=== PATIENT | female | born 1955 | race Caucasian/White ===

== ENCOUNTER 2018-01-07 15:27 | Observation (INO) | payer OTHER ==
[~2018-01-07] VITALS: Ht 175.3 cm; Wt 167.3 kg
[~2018-01-07 15:27] MED LIST: ACULAR 0.5100 DROP/5 BOTH EYES; ASPIR 8181 M1 PO; AVENTYL,PAMELOR10 MG PO; CLARINEX5 MG PO; CLARITIN10 M3 PO; CLEOCIN300 MG PO; COLACE100 MG PO; CRESTOR10 MG PO; Citracal W/Vitamin D PO; Colace PO; DIFLUCAN 440 MG/1 ML PO; DIFLUCAN50 MG PO; Diflucan PO; ENDOCET 5-3251 EACH PO; FISH OIL 1,2001 EAC4 PO; FISH OIL300 MG PO; FLAX OIL1000 MG PO; FLAXSEED OIL1000 M4 PO; Flomax PO; GLIPIZIDE XL10 M1 PO; GLYBURIDE5 MG PO; JANUMET 50/11 TABLET PO; LASIX20 MG PO; LORTAB 5-500 T1 EACH PO; METANX1 TABLET PO; MICARDIS80 MG PO; MOTRIN800 MG PO; NOVOLOG 10100 UNITS/ SC; NOVOLOG MI100 UNIT/4 SC; NOVOLOG MI100 UNIT/M PO; PHENERGAN-CODE120 ML PO; SPIRIVA1 INHALATI IH; SYMBICORT60 INHALAT IH; SYSTANE ULTRA; TOPROL XL100 MG PO; TRAMADOL HCL50 MG PO; TRIFLEX PO; TYLENOL REGULA325 MG PO; Toprol XL PO; VANCOMYCIN HCL250 MG PO; VITAMIN C1000 M3 PO; VITAMIN D3 1,01 EACH PO; VITAMIN E400 UNIT PO; VITAMIN E600 UNIT PO; Vitamin B-12 PO; ZANTAC150 MG PO
[2018-01-07 16:24] LABS: HEMATOCRIT 39.3 % (36.0-46.0); HEMOGLOBIN 12.6 G/DL (11.9-15.5); MCH 29.2 PG (29.0-34.0); MCHC 32.1 G/DL (30.0-36.0); PLATELET COUNT 214 K/uL (156-360); RBC DIS.WIDTH-CV 15.8 % (11.8-14.6); RBC DIS.WIDTH-SD 52.8 % (39-53); RED BLOOD COUNT 4.32 M/uL (3.80-5.20); WHITE BLOOD COUNT 7.7 K/uL (4.1-10.2)
[2018-01-07 16:32] LABS: CHLORIDE 106 mEq/L (99-109); SODIUM 143 mEq/L (136-147)
[2018-01-07 16:34] LABS: GLUCOSE 137 mg/dL (70-99)
[2018-01-07 16:38] LABS: CREATININE 0.7 mg/dL (0.6-1.3); GFR ESTIMATE (CALCULATED) > 59 mL/min/
[2018-01-07 16:39] LABS: UREA NITROGEN (BUN) 11 mg/dL (9-23)
[2018-01-07 16:45] LABS: TROP-I INTERPRETATION NEGATIVE; TROPONIN-I < 0.01 ng/mL (0.0-0.30)
[2018-01-07 19:06] LABS: BASOPHIL (%) 0.3 % (0-1); EOSINOPHIL (%) 2.3 % (0-5); EOSINOPHIL COUNT 0.2 K/uL (0-0.3); HEMATOCRIT 39.8 % (36.0-46.0); HEMOGLOBIN 12.8 G/DL (11.9-15.5); IMMATURE GRANULOCYTE (%) 0.4 % (0.0-0.7); LYMPHOCYTE (%) 26.3 % (15-42); LYMPHOCYTE COUNT 2.4 K/uL (1.0-2.8); MCH 29.5 PG (29.0-34.0); MCHC 32.2 G/DL (30.0-36.0); MCV 91.7 FL (83-99); MONOCYTE (%) 7.6 % (3-12); MONOCYTE COUNT 0.7 K/uL (0-0.8); NEUTROPHIL (%) 63.1 % (45-76); NEUTROPHIL COUNT 5.8 K/uL (1.8-6.4); PLATELET COUNT 208 K/uL (156-360); RBC DIS.WIDTH-CV 15.9 % (11.8-14.6); RBC DIS.WIDTH-SD 53.2 % (39-53); RED BLOOD COUNT 4.34 M/uL (3.80-5.20); WHITE BLOOD COUNT 9.2 K/uL (4.1-10.2)
[2018-01-07 19:12] LABS: INTER. NORMALIZED RATIO 1.1
[2018-01-07 19:14] LABS: PTT 27.9 SEC (25-37)
[2018-01-07 19:16] LABS: AMYLASE 39 IU/L (1-118)
[2018-01-07 19:25] LABS: LIPASE 25 U/L (1.0-51.0); SERUM ETHYL ALCOHOL < 10 mg/dL
[2018-01-07 19:27] LABS: TROP-I INTERPRETATION NEGATIVE; TROPONIN-I 0.01 ng/mL (0.0-0.30)
[2018-01-07 19:51] LABS: APPEARANCE CLEAR ((CLEAR)); BILIRUBIN NEGATIVE; BLOOD NEGATIVE; COLOR YELLOW ((YELLOW)); GLUCOSE (STRIP) NEGATIVE; KETONES NEGATIVE; LEUKOCYTES NEGATIVE; NITRITE NEGATIVE; PROTEIN (STRIP) NEGATIVE; SPECIFIC GRAVITY 1.025 (1.000-1.030); UCUL ADDED? NO; UROBILINOGEN 0.2 MG/DL (0.2-1.0)
[2018-01-07 20:20] LABS: AMPHETAMINE NEGATIVE (500 ng/mL); BARBITURATES NEGATIVE (200 ng/mL); BENZODIAZEPINES NEGATIVE (150 ng/mL); BUPRENORPHINE NEGATIVE (10 ng/mL); COCAINE NEGATIVE (150 ng/mL); METHADONE NEGATIVE (200 ng/mL); METHAMPHETAMINE NEGATIVE (500 ng/mL); OPIATES (MORPHINE) NEGATIVE (100 ng/mL); OXYCODONE NEGATIVE (100 ng/mL); PHENCYCLIDINE NEGATIVE (25 ng/mL); PROPOXYPHENE NEGATIVE (300 ng/mL); THC CANNABINOIDS NEGATIVE (50 ng/mL); TRICYCLIC ANTIDEPRESSANTS NEGATIVE (300 ng/mL)
[2018-01-08 01:03] LABS: TROP-I INTERPRETATION NEGATIVE; TROPONIN-I < 0.01 ng/mL (0.0-0.30)
[2018-01-08 03:29] VITALS: BP 158/58
[2018-01-08] MEDS ORDERED: ASPIRIN81 M2 PD (03:36)
[2018-01-08] MEDS ORDERED: CRESTOR10 MG PO (03:37)
[2018-01-08] MEDS ORDERED: COLACE100 MG PO (03:39)
[2018-01-08] MEDS ORDERED: GABAPENTIN300 MG PO (03:40)
[2018-01-08] MEDS ORDERED: HYDROXYZINE PAM25 MG PO (03:43)
[2018-01-08] MEDS ORDERED: MICARDIS80 MG PO (03:44)
[2018-01-08] MEDS ORDERED: MOTRIN800 MG PO (03:46)
[2018-01-08] MEDS ORDERED: RANITIDINE HCL300 MG PO (03:47)
[2018-01-08] MEDS ORDERED: TOPROL XL100 MG PO (03:48)
[2018-01-08] MEDS ORDERED: ACCOLATE20 MG PO (03:49)
[2018-01-08] MEDS ORDERED: PODIAPN CAPSUL1 EACH PO (03:53)
[2018-01-08] MEDS ORDERED: VITAMIN C1000 MG PO (03:55)
[2018-01-08] MEDS ORDERED: VITAMIN D2000 UNI1 PO (03:56)
[2018-01-08] MEDS ORDERED: FLAX OIL1000 MG PO (03:57)
[2018-01-08] MEDS ORDERED: FISH OIL 1,0001 EAC7 PO (03:58)
[2018-01-08] MEDS ORDERED: FOLIC ACID0.4 MG PO (03:59)
[2018-01-08] MEDS ORDERED: GLUCOSAMINE-CH1 EA49 PO (04:01)
[2018-01-08] MEDS ORDERED: K2 PLUS D3 TAB1 EACH PO (04:02)
[2018-01-08] MEDS ORDERED: OMEGA-31000 M1 PO (04:04)
[2018-01-08 06:18] LABS: TROP-I INTERPRETATION NEGATIVE; TROPONIN-I < 0.01 ng/mL (0.0-0.30)
[2018-01-08 07:57] VITALS: BP 150/70
[2018-01-08] MEDS ORDERED: HUMULIN R500 UNIT/1 IM/SC (11:31)
[2018-01-08] MEDS ORDERED: SYMBICORT60 INHALAT IH (12:00)
[2018-01-08] MEDS ORDERED: VENTOLIN HFA18 GM IH (12:01)
[2018-01-08] MEDS ORDERED: SPIRIVA RESPIMAT4 GM IH (12:01)
[2018-01-08 12:20] VITALS: BP 174/80
[2018-01-08] MEDS ORDERED: HUMULIN R500 UNIT/1 SC ×2 (12:34)
== END 2018-01-08 16:58 | disposition home or self-care (01) ==
LOC: EME 15:27 → EDOF 23:28 → ENRESERV 23:30 → 4SOUTH 01-08 01:21
PROVIDERS: Hospitalist; Physician Assistant
DX: R07.89 Other chest pain (principal); R91.1 Solitary pulmonary nodule; J44.9 Chronic obstructive pulmonary disease, unspecified; Z77.22 Contact with and (suspected) exposure to environmental tobacco smoke (acute) (chronic); I48.2 Chronic atrial fibrillation; I11.0 Hypertensive heart disease with heart failure; I50.32 Chronic diastolic (congestive) heart failure; K57.90 Diverticulosis of intestine, part unspecified, without perforation or abscess without bleeding; E66.01 Morbid (severe) obesity due to excess calories; G89.29 Other chronic pain; M54.5 Low back pain; Z85.42 Personal history of malignant neoplasm of other parts of uterus; Z90.49 Acquired absence of other specified parts of digestive tract; Z90.711 Acquired absence of uterus with remaining cervical stump; Z90.722 Acquired absence of ovaries, bilateral; I89.0 Lymphedema, not elsewhere classified; E11.9 Type 2 diabetes mellitus without complications; M45.9 Ankylosing spondylitis of unspecified sites in spine; Z88.2 Allergy status to sulfonamides; Z88.1 Allergy status to other antibiotic agents; Z88.8 Allergy status to other drugs, medicaments and biological substances
CPT/HCPCS: 70450; 70496; 70498; 71046; 71260; 71275; 80047; 80048; 81003; 82150; 82948; 83690; 84484; 85025; 85027; 85610; 85730; 86850; 86900; 86901; 93005; 94640; 99281; 99285; G0378; G0480; J1815; J2270

== ENCOUNTER → 2018-01-20 | Outpatient (CLI) | payer OTHER ==
[~2018-01-20] MED LIST changes: +ACCOLATE20 MG PO; +ACULAR 0.5100 DROP/5 RIGHT EYE; +ASPIRIN81 M2 PD; +FISH OIL 1,0001 EAC7 PO; +FOLIC ACID0.4 MG PO; +GABAPENTIN300 MG PO; +GLUCOSAMINE-CH1 EA49 PO; +HUMULIN R500 UNIT/1 IM/SC; +HUMULIN R500 UNIT/1 SC; +HYDROXYZINE PAM25 MG PO; +K2 PLUS D3 TAB1 EACH PO; +OMEGA-31000 M1 PO; +PODIAPN CAPSUL1 EACH PO; +RANITIDINE HCL300 MG PO; +SPIRIVA RESPIMAT4 GM IH; +TOBREX5 ML RIGHT EYE; +VENTOLIN HFA18 GM IH; +VITAMIN C1000 MG PO; +VITAMIN D2000 UNI1 PO
[2018-01-20 15:42] LABS: HEMATOCRIT 39.6 % (36.0-46.0); HEMOGLOBIN 12.9 G/DL (11.9-15.5); MCH 28.8 PG (29.0-34.0); MCHC 32.6 G/DL (30.0-36.0); MCV 88.4 FL (83-99); RBC DIS.WIDTH-CV 15.7 % (11.8-14.6); RED BLOOD COUNT 4.48 M/uL (3.80-5.20); WHITE BLOOD COUNT 12.6 K/uL (4.1-10.2)
[2018-01-20 15:45] LABS: PLATELET COUNT 321 K/uL (156-360)
[2018-01-20 15:53] LABS: INTER. NORMALIZED RATIO 1.2
[2018-01-20 15:56] LABS: PTT 26.8 SEC (25-37)
== END | disposition home or self-care (01) ==
LOC: AMB 14:30
PROVIDERS: Internal Medicine Pulmonary Disease
DX: R91.8 Other nonspecific abnormal finding of lung field (principal); I10 Essential (primary) hypertension; E11.9 Type 2 diabetes mellitus without complications; E66.01 Morbid (severe) obesity due to excess calories; Z68.43 Body mass index [BMI] 50.0-59.9, adult; G47.33 Obstructive sleep apnea (adult) (pediatric); D64.9 Anemia, unspecified
CPT/HCPCS: 71045; 82948; 85027; 85610; 85730; 87070; 87116; 87205; 87206; 88108; 88173; 88305; 88312; 94799; J0330; J2250

== ENCOUNTER 2018-01-23 23:58 | Emergency (ER) | payer OTHER ==
[~2018-01-23] VITALS: Ht 175.3 cm; Wt 165.5 kg
[~2018-01-23 23:58] MED LIST changes: -ACULAR 0.5100 DROP/5 RIGHT EYE; -TOBREX5 ML RIGHT EYE
[2018-01-24] MEDS ORDERED: TOBREX5 ML RIGHT EYE (00:35)
[2018-01-24] MEDS ORDERED: ACULAR 0.5100 DROP/5 RIGHT EYE (00:35)
[2018-01-24 01:13] VITALS: BP 125/88
== END 2018-01-24 01:14 | disposition home or self-care (01) ==
LOC: EME 23:58
DX: H10.9 Unspecified conjunctivitis (principal); I10 Essential (primary) hypertension; J44.9 Chronic obstructive pulmonary disease, unspecified; E11.9 Type 2 diabetes mellitus without complications; K21.9 Gastro-esophageal reflux disease without esophagitis; M79.7 Fibromyalgia; F41.9 Anxiety disorder, unspecified; Z79.4 Long term (current) use of insulin; Z79.51 Long term (current) use of inhaled steroids; Z79.82 Long term (current) use of aspirin; Z87.442 Personal history of urinary calculi; Z86.69 Personal history of other diseases of the nervous system and sense organs; Z87.19 Personal history of other diseases of the digestive system; Z86.79 Personal history of other diseases of the circulatory system; Z85.828 Personal history of other malignant neoplasm of skin; Z98.890 Other specified postprocedural states; Z90.710 Acquired absence of both cervix and uterus; Z90.49 Acquired absence of other specified parts of digestive tract; Z88.1 Allergy status to other antibiotic agents; Z88.2 Allergy status to sulfonamides; Z88.8 Allergy status to other drugs, medicaments and biological substances
CPT/HCPCS: 99281; 99283

== ENCOUNTER → 2018-02-02 | Outpatient (CLI) | payer OTHER ==
[~2018-02-02] MED LIST changes: +ACULAR 0.5100 DROP/5 RIGHT EYE; +ADVAIR HFA120 INHAL1 IH; +ALDACTONE25 MG PO; +LEVAQUIN500 MG PO; +MELATONIN1 MG PO; +TOBREX5 ML RIGHT EYE
== END | disposition home or self-care (01) ==
LOC: OPR 07:52 → EDSTATUS 08:00
PROVIDERS: Internal Medicine Pulmonary Disease
PROC: 0BJK3ZZ Inspection of Right Lung, Percutaneous Approach (ICD-10-PCS; principal; 2018-02-02)
DX: R91.1 Solitary pulmonary nodule (principal); Z53.09 Procedure and treatment not carried out because of other contraindication; R04.2 Hemoptysis; R05 Cough
CPT/HCPCS: 71045; 77012; 82948; J3010

== ENCOUNTER → 2018-02-10 | Outpatient (CLI) | payer OTHER ==
[~2018-02-10] MED LIST changes: +DIURETIC SOFTGE50 MG PO; +VALSARTAN160 MG PO
== END | disposition home or self-care (01) ==
LOC: OPR 08:50 → EDSTATUS 09:00
PROVIDERS: Internal Medicine Pulmonary Disease
PROC: 0BBC3ZX Excision of Right Upper Lung Lobe, Percutaneous Approach, Diagnostic (ICD-10-PCS; principal; 2018-02-10)
DX: R91.1 Solitary pulmonary nodule (principal); J45.909 Unspecified asthma, uncomplicated; G47.33 Obstructive sleep apnea (adult) (pediatric); E66.01 Morbid (severe) obesity due to excess calories; Z68.43 Body mass index [BMI] 50.0-59.9, adult; I51.9 Heart disease, unspecified; E11.9 Type 2 diabetes mellitus without complications; E78.5 Hyperlipidemia, unspecified; K21.9 Gastro-esophageal reflux disease without esophagitis; I10 Essential (primary) hypertension; Z79.82 Long term (current) use of aspirin; D64.9 Anemia, unspecified; Z88.1 Allergy status to other antibiotic agents; Z88.2 Allergy status to sulfonamides; Z88.8 Allergy status to other drugs, medicaments and biological substances
CPT/HCPCS: 71045; 77012; 82948; 88305; 88341 TC; 88342 TC; J3010

== ENCOUNTER → 2018-02-15 | Outpatient (CLI) | payer OTHER ==
[~2018-02-15] MED LIST changes: +ULTRAM50 MG PO
== END | disposition home or self-care (01) ==
LOC: RAD 10:08
DX: J93.9 Pneumothorax, unspecified (principal)
CPT/HCPCS: 71045

== ENCOUNTER 2018-02-24 10:06 | Emergency (ER) | payer OTHER ==
[~2018-02-24] VITALS: Ht 175.3 cm; Wt 163.6 kg
[~2018-02-24 10:06] MED LIST changes: -ULTRAM50 MG PO
[2018-02-24 11:08] LABS: BASOPHIL (%) 0.3 % (0-1); EOSINOPHIL (%) 1.7 % (0-5); EOSINOPHIL COUNT 0.1 K/uL (0-0.3); HEMATOCRIT 37.6 % (36.0-46.0); HEMOGLOBIN 11.9 G/DL (11.9-15.5); IMMATURE GRANULOCYTE (%) 0.3 % (0.0-0.7); LYMPHOCYTE (%) 27.9 % (15-42); MCH 27.9 PG (29.0-34.0); MCHC 31.6 G/DL (30.0-36.0); MCV 88.3 FL (83-99); MONOCYTE (%) 7.6 % (3-12); MONOCYTE COUNT 0.5 K/uL (0-0.8); NEUTROPHIL (%) 62.2 % (45-76); NEUTROPHIL COUNT 4.4 K/uL (1.8-6.4); PLATELET COUNT 201 K/uL (156-360); RBC DIS.WIDTH-CV 15.7 % (11.8-14.6); RBC DIS.WIDTH-SD 50.4 % (39-53); RED BLOOD COUNT 4.26 M/uL (3.80-5.20)
[2018-02-24 11:13] LABS: INTER. NORMALIZED RATIO 1.1
[2018-02-24 11:15] LABS: PTT 21.2 SEC (25-37)
[2018-02-24 11:19] LABS: CHLORIDE 104 mEq/L (99-109); POTASSIUM 4.2 mEq/L (3.7-5.4); SODIUM 140 mEq/L (136-147)
[2018-02-24 11:20] LABS: MAGNESIUM 2.1 mg/dL (1.3-2.7)
[2018-02-24 11:21] LABS: GLUCOSE 178 mg/dL (70-99)
[2018-02-24 11:25] LABS: CREATININE 0.7 mg/dL (0.6-1.3); GFR ESTIMATE (CALCULATED) > 59 mL/min/; UREA NITROGEN (BUN) 13 mg/dL (9-23)
[2018-02-24 11:29] LABS: TROP-I INTERPRETATION NEGATIVE; TROPONIN-I < 0.01 ng/mL (0.0-0.30)
[2018-02-24 14:10] LABS: TROP-I INTERPRETATION NEGATIVE; TROPONIN-I < 0.01 ng/mL (0.0-0.30)
[2018-02-24] MEDS ORDERED: ULTRAM50 MG PO (14:20)
[2018-02-24 14:40] VITALS: BP 104/52
== END 2018-02-24 15:16 | disposition home or self-care (01) ==
LOC: EME 10:06
PROVIDERS: Emergency Medicine
DX: R07.9 Chest pain, unspecified (principal); R06.02 Shortness of breath; R91.8 Other nonspecific abnormal finding of lung field; J45.909 Unspecified asthma, uncomplicated; J43.9 Emphysema, unspecified; E11.9 Type 2 diabetes mellitus without complications; M79.7 Fibromyalgia; I10 Essential (primary) hypertension; K21.9 Gastro-esophageal reflux disease without esophagitis; F41.1 Generalized anxiety disorder; Z85.828 Personal history of other malignant neoplasm of skin; Z88.2 Allergy status to sulfonamides; Z88.8 Allergy status to other drugs, medicaments and biological substances
CPT/HCPCS: 71045; 71275; 80048; 83735; 84484; 85025; 85610; 85730; 93005; 99281; 99285